=== PATIENT | male | born 1985 | race African-American/Black ===

== ENCOUNTER 2020-03-20 23:10 | Emergency (ER) | payer MEDICAID ==
[~2020-03-20] VITALS: Ht 182.9 cm; Wt 111.0 kg
[2020-03-21] MEDS ORDERED: KETOROLAC 30MG/ML VIAL IM ONE (00:15)
[2020-03-21] MEDS ORDERED: CYCLOBENZAPRINE 10MG TABLET PO ONE (00:45)
[2020-03-21] MEDS ORDERED: HYDROCODONE/ACETAMINOPHEN 10/325MG TABLET PO ONE (01:45)
[2020-03-21 04:43] VITALS: BP 131/70
== END 2020-03-21 04:44 | disposition home or self-care (01) ==
LOC: ER 23:29
DX: M54.5 Low back pain (principal); R03.0 Elevated blood-pressure reading, without diagnosis of hypertension
CPT/HCPCS: 72100; 96372; 99283; J1885